=== PATIENT | male | born 1965 | race Caucasian/White ===

== ENCOUNTER 2020-09-05 19:53 | Emergency (ER) | payer OTHER ==
[~2020-09-05] VITALS: Ht 193 cm; Wt 118.2 kg
[2020-09-05 20:18] VITALS: BP 125/98
[2020-09-05] MEDS ORDERED: HYDR25CA PO (21:17)
== END 2020-09-05 21:46 | disposition home or self-care (01) ==
LOC: ER 19:54
DX: F41.9 Anxiety disorder, unspecified (principal); F17.200 Nicotine dependence, unspecified, uncomplicated; Z79.899 Other long term (current) drug therapy
CPT/HCPCS: 99283